=== PATIENT | female | born 1990 | race Caucasian/White ===

== ENCOUNTER → 2023-11-19 14:25 | Outpatient (REF) | payer BC, SELFPAY ==
--- NOTE | 2023-11-19 14:29 | PN.DIAED06 ---
Meal Plan - Gestational
- Breakfast
Gestational Diabetes Meal Plan Name: 1800 calories
Breakfast - Total Carbohydrate (grams): 30
Breakfast - Starch Carbohydrate: 1
Breakfast - Fruit Carbohydrate: 0
Breakfast - Milk Carbohydrate: 1
Breakfast - Nonstarchy Vegetables: Yes
Breakfast - Meat/Protein: 1
Breakfast - Fat: 2
- Morning Snack
Morning Snack - Total Carbohydrate (grams): 30
Morning Snack - Starch Carbohydrate: 1
Morning Snack - Fruit Carbohydrate: 0
Morning Snack - Milk Carbohydrate: 1
Morning Snack - Nonstarchy Vegetables: Yes
Morning Snack - Meat/Protein: 0.5
Morning Snack - Fat: 0
- Lunch
Lunch - Total Carbohydrate (grams): 45
Lunch - Starch Carbohydrate: 2
Lunch - Fruit Carbohydrate: 1
Lunch - Milk Carbohydrate: 0
Lunch - Nonstarchy Vegetables: Yes
Lunch - Meat/Protein: 2
Lunch - Fat: 1
- Afternoon Snack
Afternoon Snack - Total Carbohydrate (grams): 30
Afternoon Snack - Starch Carbohydrate: 1
Afternoon Snack - Fruit Carbohydrate: 1
Afternoon Snack - Milk Carbohydrate: 0
Afternoon Snack - Nonstarchy Vegetables: Yes
Afternoon Snack - Meat/Protein: 1
Afternoon Snack - Fat: 0
- Dinner
Dinner - Total Carbohydrate (grams): 45
Dinner - Starch Carbohydrate: 2
Dinner - Fruit Carbohydrate: 0
Dinner - Milk Carbohydrate: 1
Dinner - Nonstarchy Vegetables: Yes
Dinner - Meat/Protein: 2
Dinner - Fat: 2
- Evening Snack
Evening Snack - Total Carbohydrate (grams): 30
Evening Snack - Starch Carbohydrate: 1
Evening Snack - Fruit Carbohydrate: 0
Evening Snack - Milk Carbohydrate: 1
Evening Snack - Nonstarchy Vegetables: Yes
Evening Snack - Meat/Protein: 1
Evening Snack - Fat: 1
--- NOTE | 2023-11-19 15:20 | PN.DE ---
Diabetes Education
- -
Met with Ladonna today for Gestational Diabetes Nutrition counseling. Ladonna is , currently at 28 weeks gestation. Explained glucose metabolism in body and what occurs during to cause increase blood sugar. Discussed importance of keeping
BS well controlled to avoid complications to the baby during and after (macrosomia, hypoglycemia). Ladonna was made aware that she is at increased risk of 60% developing T2DM in the future.
Ladonna has been monitoring her blood sugar 4 times a day, fasting and 2 hrs after each meal and brought with her a glucose log that showed fasting glucose of 70-100, reviewed proper testing technique, testing sites and testing pattern. She is aware
to test FBS and 2 hr pp each meal. Expected results for FBS <95 mg/dl and 2 hr pp <120 mg/dl. She is aware if testing 1 hr pp, result should be <140 mg/dl.
Log sheet provided for her to record results, she will send to the Diabetes office in 6 days along with her food journey as a f/u and to send numbers to Noemi at [facility] every Friday.
Explained macronutrients and the effect each has on blood sugar. Provided with 1800 jose antonio GDM meal plan. She has been educated on how to read a nutritional fact label and look at total CHO in relation to serving size. Emphasized to Ladonna that she
should have No fruit or fruit juice until noontime. Provided with handout on snacks as well as 'Choose Your Foods' booklet. Encouraged exercise and increase physical activity during and encouraged her to reach out should she have any
questions or require insulin as her progresses.
== END ==
LOC: DES 14:25
PROVIDERS: ATTENDING PHYSICIAN Obstetrics & Gynecology; FAMILY PHYSICIAN Obstetrics & Gynecology
DX: O24.419 Gestational diabetes mellitus in pregnancy, unspecified control (principal)
CPT/HCPCS: 99078

== ENCOUNTER → 2024-01-29 10:22 | Outpatient (REF) | payer BC, SELFPAY | LOC: PNTC 10:22 | PROVIDERS: ATTENDING PHYSICIAN Obstetrics & Gynecology | DX: O24.419 Gestational diabetes mellitus in pregnancy, unspecified control (principal) | CPT/HCPCS: 59025; 76815 ==

== ENCOUNTER 2024-02-02 14:22 | Inpatient (IN) | payer BC, SELFPAY ==
[2024-02-02] MEDS: LR 1000 IV ×2 (14:45→15:30)
[2024-02-02 14:52] LABS: Glucose - Point of Care 96 mg/dl (70-99)
[2024-02-02 15:04] LABS: % Basophils 0.3 % (0-2); % Eosinophils 0.2 % (0-6); % Immature Granulocytes 0.5 % (0-0.5); % Lymphocytes 16.4 % (20.5-51.1); % Monocytes 4.8 % (1.7-9.3); % Neutrophils 77.8 % (42.2-75.2); Absolute Immature Granulocytes 0.1 10^3/uL (0-0.05); Absolute Lymphocytes 2.4 10^3/uL (1.2-3.4); Absolute Monocytes 0.7 10^3/uL (0.1-0.6); Absolute Neutrophils 11.4 10^3/uL (1.4-6.5); Hematocrit 36.2 % (37.0-47.0); Hemoglobin 11.8 g/dL (12.0-16.0); Mean Corp Hgb Conc. 32.6 g/dL (33.0-37.0); Mean Corpuscular Hgb 28.5 pg (27.0-31.0); Mean Corpuscular Volume 87.4 fL (81.0-99.0); Mean Platelet Volume 9.2 fL (7.4-10.4); Nucleated Red Blood Cells % 0 %; Platelet Count 463 10^3/uL (130-400); Red Blood Cell Count 4.14 10^6/uL (4.20-5.40); Red Cell Dist. Width 14.7 % (11.5-14.5); White Blood Cell Count 14.7 10^3/uL (4.8-10.8)
[2024-02-02] MEDS: SUBLIMAZE 100 MCG EPIDURAL (15:06)
[2024-02-02] MEDS: FENTANYL/BUPIVACAINE 100 EPIDURAL (15:06)
[2024-02-02] MEDS: PITOCIN 30 UNITS/NSS 500 ML IV (16:11)
[2024-02-03 05:27] LABS: Hematocrit 32.2 % (37.0-47.0); Hemoglobin 10.8 g/dL (12.0-16.0)
[2024-02-03 05:42] VITALS: BMI 31.2
[2024-02-03] MEDS: TYLENOL 650 MG PO (05:42)
[2024-02-03 14:34] LABS: Syphilis/T. pallidum Ab Reflex Negative (Negative)
[2024-02-04] MEDS: TYLENOL 650 MG PO (08:04)
== END 2024-02-04 15:46 | disposition home or self-care (01) | DRG 806 ==
LOC: LDRP 14:22
PROVIDERS: ADMITTING PHYSICIAN Obstetrics & Gynecology; FAMILY PHYSICIAN Family Medicine
PROC: 10E0XZZ Delivery of Products of Conception, External Approach (ICD-10-PCS; 2024-02-02)
DX: O24.425 Gestational diabetes mellitus in childbirth, controlled by oral hypoglycemic drugs (principal); K51.90 Ulcerative colitis, unspecified, without complications; Z37.0 Single live birth; Z3A.39 39 weeks gestation of pregnancy; O69.81X0 Labor and delivery complicated by cord around neck, without compression, not applicable or unspecified; O77.0 Labor and delivery complicated by meconium in amniotic fluid; O99.344 Other mental disorders complicating childbirth; F41.9 Anxiety disorder, unspecified; Z79.84 Long term (current) use of oral hypoglycemic drugs
CPT/HCPCS: 88307; 36415; 82962; 85014; 85018; 85025; 86780; 86850; 86900; 86901

== ENCOUNTER 2024-02-09 14:07 | Emergency (ER) | payer BC, SELFPAY ==
[2024-02-09 14:09] VITALS: BP 153/84
[2024-02-09 14:45] LABS: Urine Albumin Negative (Neg - Trace); Urine Bilirubin Negative (Negative); Urine Character Slightly Cloudy (Clear); Urine Color Yellow; Urine Glucose Negative (Negative); Urine Ketone Negative (Negative); Urine Leukocyte 2+ (Negative); Urine Nitrite Negative (Negative); Urine Occult Blood 4+ (Negative); Urine Urobilinogen Negative (Neg - 1+)
[2024-02-09 14:46] LABS: % Basophils 0.7 % (0-2); % Eosinophils 0.1 % (0-6); % Immature Granulocytes 0.6 % (0-0.5); % Lymphocytes 7.4 % (20.5-51.1); % Monocytes 3.6 % (1.7-9.3); % Neutrophils 87.6 % (42.2-75.2); Absolute Basophils 0.1 10^3/uL (0-0.2); Absolute Immature Granulocytes 0.1 10^3/uL (0-0.05); Absolute Lymphocytes 0.8 10^3/uL (1.2-3.4); Absolute Monocytes 0.4 10^3/uL (0.1-0.6); Absolute Neutrophils 9.1 10^3/uL (1.4-6.5); Hematocrit 39.3 % (37.0-47.0); Hemoglobin 13.4 g/dL (12.0-16.0); Mean Corp Hgb Conc. 34.1 g/dL (33.0-37.0); Mean Corpuscular Hgb 28.5 pg (27.0-31.0); Mean Corpuscular Volume 83.6 fL (81.0-99.0); Nucleated Red Blood Cells % 0 %; Red Cell Dist. Width 14.7 % (11.5-14.5); White Blood Cell Count 10.4 10^3/uL (4.8-10.8)
[2024-02-09 14:52] LABS: Urine Squamous Cell 21-25 /LPF (Few)
[2024-02-09 14:54] LABS: Urine Red Blood Cell 26-30 /HPF (0-2)
[2024-02-09 14:55] LABS: Urine Bacteria Moderate (Negative)
[2024-02-09 14:57] LABS: COVID-19 Antigen Negative (Negative)
[2024-02-09 15:05] LABS: Mean Platelet Volume 9.1 fL (7.4-10.4); Platelet Count 433 10^3/uL (130-400)
[2024-02-09 15:06] LABS: ALT (SGPT) 28 U/L (0-35); AST (SGOT) 33 U/L (14-36); Albumin 4.3 g/dl (3.5-5.0); Alkaline Phosphatase 142 U/L (38-126); Blood Urea Nitrogen 12 mg/dl (7-17); Calcium 9.4 mg/dl (8.4-10.2); Carbon Dioxide 20 mmol/L (22-30); Chloride 103 mmol/L (98-107); Glucose 88 mg/dl (70-99); Potassium 4.5 mmol/L (3.5-5.1); Sodium 132 mmol/L (135-145); Total Bilirubin 0.7 mg/dl (0.2-1.3); Total Protein 8.2 g/dl (6.3-8.2); eGFR > 60.00
[2024-02-09 16:42] VITALS: BP 125/84
--- NOTE | 2024-02-09 17:02 | ED.GENMED ---
History of Present Illness
General
Chief Complaint: Fever
Source: patient
Exam Limitations: none
Time Seen by Provider: 02/09/24 16:37
Travel History
Have you had any contact with someone who has COVID-19?: No
Do you have any symptoms of coronavirus? Fever > 100 degrees, chills, cough, shortness of breath, sore throat, loss of taste or smell, muscle aches, or headache?: Yes
Symptoms:: fever
History of Present Illness
History of Present Illness:
33-year-old female presents for fever. She was at the [facility] office this morning after she started with a fever. She is 1 week . She denies a cough or runny nose chest pain shortness of breath. She denies any abdominal pain pelvic pain
or urinary symptoms. She had a pelvic exam at the OB office and endometritis was not a concern based off of OB's note. No other complaints at this time. She has a history of ulcerative colitis
Phy Exam
Physical Exam
Physical Exam:
General: Well-appearing female nontoxic no acute respiratory distress
HEENT: Normocephalic atraumatic neck is supple mucosa moist
Heart: Regular rate and rhythm no murmurs
Lungs: Clear no wheezing or rales
Abdomen soft nontender nondistended no guarding rebound normal bowel sounds no costovertebral angle tenderness extremities: No cyanosis or edema
Skin: Warm no rash
Course
Orders/Labs/Results
Orders:
Orders
02/09/24 14:12
Lactic Acid Urgent
02/09/24 14:28
COVID-19 Antigen Urgent
Source: Nasal Swab
Complete Blood Count/With Diff Urgent
Comprehensive Metabolic Panel Urgent
Blood Culture Urgent
ROCKY Source: Blood/Venous
Specimen Description:
Influenza A+B Rapid Molecular Urgent
ROCKY Source: Nasal Swab
Specimen Description:
02/09/24 14:32
Urinalysis Reflex To Culture Urgent
Date Specimen was Collected: 02/09/24
Time Specimen was Collected: 14:31
Urine Microscopic Reflex Cult Urgent
Urine Culture Urgent
ROCKY Source: U
Specimen Description:
Obtained by: Random
Date Specimen was Collected: 02/09/24
Time Specimen was Collected: 14:31
Abnormal Lab Results
02/09/24 02/09/24
14:28 14:32
RDW 14.7 H %
(11.5-14.5)
Plt Count 433 H 10^3/uL
(130-400)
Abs Immat Gran (auto) 0.1 H 10^3/uL
(0-0.05)
Absolute Neuts (auto) 9.1 H 10^3/uL
(1.4-6.5)
Absolute Lymphs (auto) 0.8 L 10^3/uL
(1.2-3.4)
Immature Gran % 0.6 H %
(0-0.5)
Neutrophils % 87.6 H %
(42.2-75.2)
Lymphocytes % 7.4 L %
(20.5-51.1)
Sodium 132 L mmol/L
(135-145)
Carbon Dioxide 20 L mmol/L
(22-30)
Creatinine 0.5 L mg/dL
(0.6-1.0)
Alkaline Phosphatase 142 H U/L
(38-126)
Ur Occult Blood Reflex 4+ A
(Negative)
Leukocyte Esterase Rfl 2+ A
(Negative)
Urine RBC 26-30 A /HPF
(0-2)
Urine WBC (Reflex) 11-15 A /HPF
(0-5)
Urine Bacteria (Reflex) Moderate A
(Negative)
02/09/24 14:28
02/09/24 14:28
Vital Signs
Initial and Last Documented VS:
Initial Vital Signs
Temp Pulse Resp BP Pulse Ox
100.8 F H 127 18 153/84 98
02/09/24 14:09 02/09/24 14:09 02/09/24 14:09 02/09/24 14:09 02/09/24 14:09
Last Documented Vital Signs
Temp Pulse Resp BP Pulse Ox
100.8 F H 113 16 125/84 97
02/09/24 14:09 02/09/24 16:42 02/09/24 16:42 02/09/24 16:42 02/09/24 16:42
MDM/Problems Addressed
Differential Diagnosis Includes:
Fever. Question viral illness versus COVID versus flu versus UTI. Endometriosis not suspected based off [facility] and their exam earlier.
White blood cell count is normal. Electrolytes and chemistry profile without significant finding. Urinalysis likely contaminated specimen given the 21-25 squamous cells per high-powered field but there is moderate bacteria and 11-15 white blood
cells.
She does not look dry send nontoxic. Do suspect viral illness. Question possible UTI. Will cover with Keflex. No indication for any further evaluation or imaging
*Critical Care Note
Total Time (30-74mins, 75-104mins- exclusive of procedures): Not Applicable
ED Attending Note
-
Portions of this chart may have been created with voice recognition software.� Occasional wrong word or��sound alike� substitutions may have occurred due to the inherent limitations of voice recognition software.
Discharge Plan
Departure
Patient Disposition: Home (Routine Discharge)
Date of Disposition: 02/09/24
Time of Disposition: 17:05
Patient with high blood pressure during this ER visit?: No
Discharge Problem:
Fever
Instructions: Fever, Adult (DC)
Prescriptions:
New
cephalexin 500 mg capsule
500 mg PO BID 14 Days Qty: 28 0RF
No Action
vit-iron fum-folic ac 1 EACH tablet
1 ea PO DAILY
Entyvio 300 MG/5 ML recon soln
300 mg IV Q4W
Patient Comments:
ulcerative colitis
acetaminophen 325 mg Tablet
650 mg PO Q4HPRN PRN (Reason: mild pain) Qty: 0 0RF
ibuprofen 600 mg Tablet
600 mg PO Q6HPRN PRN (Reason: moderate pain/cramps) Qty: 0 0RF
sennosides-docusate sodium [Stool Softener-Stimulant Laxat] 8.6-50 mg Tablet
1 tab PO DAILYPRN PRN (Reason: constipation) Qty: 0 0RF
Referrals:
Arturo Tirado MD [Family Provider] -
Activity Restrictions/Additional Instructions:
Continue with Tylenol if needed for pain or fever. The urine culture and blood culture are pending. You should receive a call if these are positive. A prescription for Keflex was sent for potential UTI. As discussed it is at the pharmacy waiting
but you do not need to fill it at this time given the lack of urinary symptoms. Return here for worsening symptoms otherwise follow-up with [facility]
Interventions
Interventions:
*Risk Screen - Suicide Last Done: 02/09/24 14:09
*General Assessment Last Done: 02/09/24 14:09
*Neglect/Abuse Screening Last Done: 02/09/24 14:09
*ED COVID-19 Vaccine History Last Done: 02/09/24 14:09
ED- Neurological Assessment Last Done: 02/09/24 16:31
ED-Skin Assessment Last Done: 02/09/24 16:31
Discharge Date and Time
Print Language: YORUBA
== END 2024-02-09 17:33 | disposition home or self-care (01) ==
LOC: EMR 14:07
PROVIDERS: Emergency Medicine; EMERGENCY PHYSICIAN Emergency Medicine; FAMILY PHYSICIAN Family Medicine
DX: R50.9 Fever, unspecified (principal); K51.90 Ulcerative colitis, unspecified, without complications
CPT/HCPCS: 99283; 80053; 81003; 81015; 85025; 87040; 87086; 87502; 87811

== ENCOUNTER → 2024-09-13 06:32 | Day surgery (SDC) | payer BC, SELFPAY | LOC: GI 06:32 | PROVIDERS: ATTENDING PHYSICIAN Internal Medicine | DX: Z12.11 Encounter for screening for malignant neoplasm of colon (principal); K51.00 Ulcerative (chronic) pancolitis without complications; K63.89 Other specified diseases of intestine; K62.4 Stenosis of anus and rectum; K52.3 Indeterminate colitis; K63.5 Polyp of colon; D12.0 Benign neoplasm of cecum; K52.89 Other specified noninfective gastroenteritis and colitis | CPT/HCPCS: 45385; 45380; 88305 ==

== ENCOUNTER 2024-11-25 06:22 | Day surgery (SDC) | payer BC, SELFPAY | END 2024-11-25 11:41 | disposition home or self-care (01) | LOC: GI 06:22 | PROVIDERS: ATTENDING PHYSICIAN Internal Medicine | DX: K51.00 Ulcerative (chronic) pancolitis without complications (principal); K63.89 Other specified diseases of intestine; K52.9 Noninfective gastroenteritis and colitis, unspecified; K62.9 Disease of anus and rectum, unspecified; D12.3 Benign neoplasm of transverse colon; K63.5 Polyp of colon; D12.0 Benign neoplasm of cecum | CPT/HCPCS: 45380; 88305 ==